=== PATIENT | male | born 1945 | race Hispanic/Latino ===

== ENCOUNTER 2017-06-05 06:08 | Day surgery (SDC) | payer MEDICARE ==
[2017-06-05] MEDS ORDERED: ECOTRIN PO ONE (06:37)
[2017-06-05] MEDS ORDERED: NACL 0.9% 500 ML 500 ML IV SCH (07:00)
[2017-06-05 07:05] LABS: Basophils % (Auto) 1.5 % (0.0-1.8); Hematocrit 43.9 % (35.5-45.6); Hemoglobin 14.7 gm/dl (11.8-15.2); Mean Corpuscular HGB Conc 34 % (32-34); Mean Corpuscular Hemoglobin 31 pg (28-32); Mean Corpuscular Volume 92 fl (84-94); Platelet Count 162 K/mm3 (140-440); Red Blood Count 4.75 M/mm3 (3.65-5.03); White Blood Count 6.4 K/mm3 (4.5-11.0)
[2017-06-05 07:21] LABS: INR 1.03 (0.87-1.13)
[2017-06-05 07:49] LABS: Anion Gap 21 mmol/L; BUN/Creatinine Ratio 14.44; Blood Urea Nitrogen 13 mg/dL (9-20); Calcium 9.2 mg/dL (8.4-10.2); Carbon Dioxide 22 mmol/L (22-30); Chloride 100.8 mmol/L (98-107); Glucose 111 mg/dL (75-100); Potassium 4.4 mmol/L (3.6-5.0); Sodium 139 mmol/L (137-145)
[2017-06-05] MEDS ORDERED: HEPARIN/NS 5000 UNIT/500ML(CATH LAB) 1,000 ML IR ONE (08:35)
[2017-06-05] MEDS ORDERED: XYLOCAINE 2% INFILTRATI ONE (08:35)
[2017-06-05] MEDS ORDERED: HEPARIN 10,000 UNITS/10 ML ONE (08:57)
[2017-06-05] MEDS ORDERED: CALAN ONE (08:58)
[2017-06-05] MEDS ORDERED: NITROGLYCERIN SYRINGE 3 ML ONE (08:58)
[2017-06-05] MEDS: VERSED ONE ×2 (09:10→09:15)
[2017-06-05] MEDS: SUBLIMAZE ONE ×2 (09:10→09:15)
[2017-06-05] MEDS ORDERED: NACL 0.9% 1000 ML 1,000 ML ONE (09:41)
[2017-06-05] MEDS ORDERED: HEPARIN/NS 5000 UNIT/500ML(CATH LAB) 500 ML IR ONE (09:52)
[2017-06-05 13:13] VITALS: BP 134/76
--- NOTE | 2017-06-20 10:58 | Prelim Cardiac Cath Report ---
Preliminary Cath Report - Hemodynamic Findings Left Ventricular(LV): 114/58 mmHg End Diastolic Pressure(EDP): 14 mmHg - Other Findings Estimated blood loss: minimal Dominance: right Estimated Ejection Fraction: 45 (inferior hypokinesis) Coronary Anatomy: LM is a moderate caliber vessel that bifurcates into the left anterior descending coronary artery and the left circumflex coronary arteries. There is not significant disease with in the left main coronary artery. LAD is a moderate caliber vessel that extends to the distal apex. The vessel gives off multiple moderate to small caliber diagonal vessels. The LAD shows luminal irregularities throughout. There is a lesion in the midsegment LAD that shows 57.1% stenosis by IVUS. LCx is moderate to small caliber vessel with luminal irregularities without significant disease. RCA is large caliber dominant vessel with luminal irregularities without significant stenosis. Post Diagnosis: No significant coronary artery disease is a right dominant system Mild LV dysfunction with EF 45-50% Recommendations: medical therapy (Recommend maximal medical therapy and aggressive risk factor modification)
== END 2017-06-05 12:45 | disposition home or self-care (01) ==
LOC: OPU 06:08
PROVIDERS: ATTEND Internal Medicine Cardiovascular Disease
DX: I25.10 Atherosclerotic heart disease of native coronary artery without angina pectoris (principal); I48.91 Unspecified atrial fibrillation; E78.5 Hyperlipidemia, unspecified; M15.9 Polyosteoarthritis, unspecified; I10 Essential (primary) hypertension; I49.5 Sick sinus syndrome; Z98.890 Other specified postprocedural states; Z95.0 Presence of cardiac pacemaker; Z88.2 Allergy status to sulfonamides; Z79.899 Other long term (current) drug therapy; Z87.891 Personal history of nicotine dependence; Z82.49 Family history of ischemic heart disease and other diseases of the circulatory system
CPT/HCPCS: 36415; 80048; 85025; 85347; 85610; 85730; 92978; 93005; 93010; 93458; C1753; C1769; C1887; C1894; J0153; J1644; J2250; J3010; J7030; J7040; Q9967